=== PATIENT | female | born 1990 | race Caucasian/White ===

== ENCOUNTER 2017-12-02 18:28 | Emergency (ER) | payer MEDICAID ==
[~2017-12-02] VITALS: Ht 162.6 cm; Wt 89.3 kg
[2017-12-02 19:11] VITALS: BP 138/81
[2017-12-02] MEDS ORDERED: diphenhydrAMINE 25mg capsule PO ONE (19:20)
[2017-12-02] MEDS ORDERED: DIPH-423 PO (19:23)
[2017-12-02] MEDS ORDERED: SULF1TAB49 PO (19:23)
[2017-12-02] MEDS ORDERED: MUPI22OI30 TP (19:23)
== END 2017-12-02 19:37 | disposition home or self-care (01) ==
LOC: ER 18:30
DX: L08.9 Local infection of the skin and subcutaneous tissue, unspecified (principal); B95.62 Methicillin resistant Staphylococcus aureus infection as the cause of diseases classified elsewhere; F15.10 Other stimulant abuse, uncomplicated; Z98.890 Other specified postprocedural states; Z79.899 Other long term (current) drug therapy; Z59.0 Homelessness
CPT/HCPCS: 99283; Q0163

== ENCOUNTER 2018-04-11 19:38 | Emergency (ER) | payer MEDICAID ==
[~2018-04-11] VITALS: Ht 157.5 cm; Wt 76.0 kg
[~2018-04-11 19:38] MED LIST: DIPH-423 PO
[2018-04-12] MEDS ORDERED: IBUP-1986 PO (03:45)
[2018-04-12 04:55] VITALS: BP 113/52
== END 2018-04-12 05:00 | disposition home or self-care (01) ==
LOC: ER 19:39
DX: S00.83XA Contusion of other part of head, initial encounter (principal); S40.011A Contusion of right shoulder, initial encounter; S20.211A Contusion of right front wall of thorax, initial encounter; M25.561 Pain in right knee; F15.10 Other stimulant abuse, uncomplicated; Z86.14 Personal history of Methicillin resistant Staphylococcus aureus infection; Z98.890 Other specified postprocedural states; Z59.0 Homelessness; Z88.5 Allergy status to narcotic agent; Y04.8XXA Assault by other bodily force, initial encounter; Y93.89 Activity, other specified; Y92.89 Other specified places as the place of occurrence of the external cause; Y99.8 Other external cause status
CPT/HCPCS: 71046; 72050; 73030; 73560; 99284

== ENCOUNTER 2019-09-27 17:01 | Emergency (ER) | payer MEDICAID ==
[~2019-09-27] VITALS: Ht 154.9 cm; Wt 86.0 kg
[~2019-09-27 17:01] MED LIST changes: -DIPH-423 PO; +IBUP-1986 PO; +LIDOcaine 1% W/epiNEPHrine 1:100,000 20ml vial ONE
--- NOTE | 2019-09-27 17:15 | NUR ---
CALLED TO TRIAGE 2X'S. PT HAS BEEN IN THE RESTROOM FOR 10 MINS
[2019-09-27 17:22] VITALS: BP 142/69
[2019-09-27] MEDS ORDERED: TETanus/Pertussis (Acell)/Diphther VAC/PF (Tdap-Adult) 0.5ml syringe IMVAC ONE (19:00)
[2019-09-27] MEDS ORDERED: BACDS PO (19:28)
[2019-09-27] MEDS ORDERED: sulfamethoxazole/trimethoprim DS (800/160mg) tablet PO ONE (19:50)
[2019-09-27] MEDS ORDERED: IBUP-1984 PO (19:52)
== END 2019-09-27 20:18 | disposition home or self-care (01) ==
LOC: ER 17:02
DX: L02.01 Cutaneous abscess of face (principal); L03.90 Cellulitis, unspecified; B95.62 Methicillin resistant Staphylococcus aureus infection as the cause of diseases classified elsewhere; F15.90 Other stimulant use, unspecified, uncomplicated; Z88.5 Allergy status to narcotic agent
CPT/HCPCS: 96372; 99283

== ENCOUNTER 2020-07-06 23:46 | Emergency (ER) | payer MEDICAID ==
[~2020-07-06] VITALS: Ht 154.9 cm; Wt 72.2 kg
[~2020-07-06 23:46] MED LIST changes: -LIDOcaine 1% W/epiNEPHrine 1:100,000 20ml vial ONE
[2020-07-06 23:53] VITALS: BP 130/76
[2020-07-07] MEDS ORDERED: DOXY100C76 PO (00:03)
[2020-07-07] MEDS ORDERED: penicillin G benzathine 1.2 million unit/2ml syringe IM SCH (00:10)
== END 2020-07-07 02:15 | disposition home or self-care (01) ==
LOC: ER 23:47
DX: L03.90 Cellulitis, unspecified (principal); A53.9 Syphilis, unspecified; F15.90 Other stimulant use, unspecified, uncomplicated; Z59.0 Homelessness; Z88.5 Allergy status to narcotic agent; Z79.899 Other long term (current) drug therapy
CPT/HCPCS: 96372; 99283; J0561

== ENCOUNTER 2020-12-05 19:37 | Emergency (ER) | payer MEDICAID ==
[~2020-12-05] VITALS: Ht 154.9 cm; Wt 88.5 kg
[2020-12-05 19:52] VITALS: BP 130/63
== END 2020-12-05 22:55 | disposition left against medical advice (07) ==
LOC: ER 19:38
DX: L02.415 Cutaneous abscess of right lower limb (principal); L02.416 Cutaneous abscess of left lower limb; Z53.21 Procedure and treatment not carried out due to patient leaving prior to being seen by health care provider